=== PATIENT | female | born 2000 | race Hispanic/Latino ===

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

== ENCOUNTER 2021-01-18 11:41 | Emergency (ER) | payer SELFPAY ==
--- NOTE | 2021-01-18 14:01 | EDPHYS ---
Physician Documentation [facility] Name: Julissa Hernandez Age: 20 yrs Sex: Female : 2000 Arrival Date: 01/18/2021 Time: 11:47 Bed 12 Private MD: ED Physician Isacc Castellon HPI: 01/18 12:59 This 20 yrs old Female presents to ER via Ambulatory with complaints of rn Shoulder Injury. 12:59 The patient or guardian complains of an injury, pain, that is acute. left clavicle. rn Onset: The symptoms/episode began/occurred 2 day(s) ago. Modifying factors: the symptoms are alleviated by nothing. The symptoms are aggravated by movement, rotation of arm. Associated signs and symptoms: Pertinent negatives: diaphoresis, dyspnea, shortness of breath, tingling. Severity of symptoms: At their worst the symptoms were moderate, in the emergency department the symptoms are unchanged. The patient has not experienced similar symptoms in the past. The patient has not recently seen a physician. Patient reports fell out of bathtub yesterday and hit left clavicular area on toilet. Reports pain with range of motion of arm but isolates pain mainly to left clavicle as well as the left anterior lateral ribs. Denies shortness of breath.. Historical: - Allergies: 11:59 No Known Allergies; tw5 - Home Meds: 11:59 None [Active]; tw5 - PMHx: 11:59 None; tw5 - PSHx: 11:59 None; tw5 - Immunization history:: Client reports having NOT received the Covid vaccine. - Social history:: Smoking status: Patient denies any tobacco usage or history of. - Family history:: not pertinent. - Hospitalizations: : No recent hospitalization is reported. ROS: 12:59 Constitutional: Negative for fever, chills, and weight loss, Eyes: Negative for injury, rn pain, redness, and discharge, Neck: Negative for injury, pain, and swelling, Cardiovascular: Negative for palpitations, and edema, positive for pain to left clavicle Respiratory: Negative for shortness of breath, cough, wheezing, and pleuritic chest pain, Abdomen/GI: Negative for abdominal pain, nausea, vomiting, diarrhea, and constipation, Back: Negative for injury and pain, : Negative for injury, bleeding, discharge, and swelling, MS/Extremity: Negative for injury and deformity, Skin: Negative for injury, rash, and discoloration, Neuro: Negative for headache, weakness, numbness, tingling, and seizure. Exam: 12:59 Constitutional: This is a well developed, well nourished patient who is awake, alert, rn and in no acute distress. Head/Face: Normocephalic, atraumatic. Eyes: Periorbital areas with no swelling, redness, or edema. Chest/axilla: Mild tenderness left clavicle and anterior ribs, no crepitus, no ecchymosis Cardiovascular: Regular rate and rhythm. No pulse deficits. Respiratory: No increased work of breathing, no retractions or nasal flaring. Abdomen/GI: Soft, non-tender Back: No spinal tenderness. No costovertebral tenderness. Full range of motion. Skin: Warm, dry with normal turgor. Normal color with no rashes, no lesions, and no evidence of cellulitis. MS/ Extremity: Pulses equal, no cyanosis. Neurovascular intact. Full, normal range of motion. Equal circumference. Neuro: Awake and alert, GCS 15 Vital Signs: 11:56 BP 145 / 71; Pulse 106; Resp 18; Temp 97.5(T); Pulse Ox 100% ; Weight 72.57 kg; Height tw5 5 ft. 5 in. (165.10 cm); Pain 7/10; 12:30 BP 142 / 74; Pulse 98; Resp 18; Temp 97.8; Pulse Ox 99% ; sl2 11:56 Body Mass Index 26.63 (72.57 kg, 165.10 cm) tw5 MDM: 11:57 Patient medically screened. rn 14:02 Differential diagnosis: Clavicular fracture, rib fracture, shoulder injury, shoulder rn sprain, contusion. Data reviewed: vital signs, nurses notes. ED course: Patient eloped after being seen by provider. Reason was not given for leaving, but x-ray took a very long time to even come to room, I imagine it is delay in radiology the cause patient to leave.. 14:04 ED course: At time of elopement, I still did not have any radiological images.. rn Administered Medications: No medications were administered Disposition Summary: 01/18/21 14:00 Eloped Disposition: after being seen by provider gilson Reason: unknown jlHolger Problem: new rn Symptoms: have improved rn Condition: Stable rn Diagnosis - Contusion of thorax rn - Pain in left shoulder rn Followup: rn - With: Private Physician - When: As needed - Reason: Recheck today's complaints, Re-evaluation by your physician Signatures: Dispatcher [employer] EDMS Isacc Castellon MD MD rn Leal, Jahala, RN RN Jacqueline Garcia tw5 Corrections: (The following items were deleted from the chart) 14:00 12:20 Ribs Left+RAD.RAD.BRZ ordered. EDMS EDMS 14:00 12:20 Chest Single View+RAD.RAD.BRZ ordered. EDMS EDMS
--- NOTE | 2021-01-18 14:01 | ER ---
Nurse's Notes [facility] Name: Julissa Hernandez Age: 20 yrs Sex: Female : 2000 Arrival Date: 01/18/2021 Time: 11:47 Bed 12 Private MD: Diagnosis: Contusion of thorax;Pain in left shoulder Presentation: 01/18 11:56 Chief complaint: Patient states: "I fell in the shower and I landed on my shoulder i tw5 know have a pain from my shoulder down to my waist.' Patient states she fell two days ago. Coronavirus screen: Vaccine status: Patient reports being unvaccinated. Ebola Screen: Patient negative for fever greater than or equal to 101.5 degrees Fahrenheit, and additional compatible Ebola Virus Disease symptoms Patient denies exposure to infectious person. Patient denies travel to an Ebola-affected area in the 21 days before illness onset. Initial Sepsis Screen: Does the patient meet any 2 criteria? HR > 90 bpm. No. Patient's initial sepsis screen is negative. Does the patient have a suspected source of infection? No. Patient's initial sepsis screen is negative. Risk Assessment: Do you want to hurt yourself or someone else? Patient reports no desire to harm self or others. Onset of symptoms was January 16, 2021. 11:56 Method Of Arrival: Ambulatory tw5 11:56 Acuity: YOU 4 tw5 Triage Assessment: 11:59 General: Appears uncomfortable, Behavior is calm, cooperative. Pain: Pain currently is tw5 7 out of 10 on a pain scale. Musculoskeletal: Reports pain in left arm. Historical: - Allergies: 11:59 No Known Allergies; tw5 - Home Meds: 11:59 None [Active]; tw5 - PMHx: 11:59 None; tw5 - PSHx: 11:59 None; tw5 - Immunization history:: Client reports having NOT received the Covid vaccine. - Social history:: Smoking status: Patient denies any tobacco usage or history of. - Family history:: not pertinent. - Hospitalizations: : No recent hospitalization is reported. Screenin:05 Abuse screen: Denies threats or abuse. Nutritional screening: No deficits noted. sl2 Tuberculosis screening: No symptoms or risk factors identified. Fall Risk None identified. Assessment: 12:04 Reassessment: Patient AAO X 3, presents to ED with c/o left shoulder pain and left sl2 lateral torso pain - states fell in the shower 2 days ago hitting her shoulder, denies head injury, denies loss of consciousness at time of fall -. 12:05 General: Appears in no apparent distress. comfortable, well groomed, well developed, sl2 Behavior is calm, cooperative. 12:05 Pain: Complains of pain in Left shoulder and left arm Pain currently is 5 out of 10 on sl2 a pain scale. Quality of pain is described as aching, Is continuous, Aggravated by increased activity, Noted to be quiet/stoic. Neuro: No deficits noted. Cardiovascular: No deficits noted. Respiratory: No deficits noted. GI: No deficits noted. : No deficits noted. EENT: No deficits noted. Derm: No deficits noted. Musculoskeletal: Reports Left shoulder pain. 12:29 Reassessment: Patient sitting up in chair, shows no signs of acute distress or sl2 discomfort. Significant other Lukas present at bedside. X-ray pending. 13:59 Reassessment: Radiology unable to locate pt, I called pt on phone and pt reports she jl7 left to go to [place] [facility]. Vital Signs: 11:56 BP 145 / 71; Pulse 106; Resp 18; Temp 97.5(T); Pulse Ox 100% ; Weight 72.57 kg; Height tw5 5 ft. 5 in. (165.10 cm); Pain 7/10; 12:30 BP 142 / 74; Pulse 98; Resp 18; Temp 97.8; Pulse Ox 99% ; sl2 11:56 Body Mass Index 26.63 (72.57 kg, 165.10 cm) tw5 ED Course: 11:47 Patient arrived in ED. am2 11:56 Jacqueline Almanza is Primary Nurse. tw5 11:57 Isacc Castellon MD is Attending Physician. rn 11:59 Triage completed. tw5 11:59 Arm band placed on right wrist. tw5 12:05 Patient has correct armband on for positive identification. Bed in low position. sl2 12:05 No provider procedures requiring assistance completed. Patient did not have IV access sl2 during this emergency room visit. 14:02 Primary Nurse role handed off by Jacqueline Almanza jl7 Administered Medications: No medications were administered Outcome: 13:59 Eloped from patient exam room, after seeing physician Time discovered patient gone: jl7 January 18, 2021 at 14:00 14:00 Patient left the ED. jl7 14:10 Patient left the ED. jl7 Signatures: Isacc Castellon MD MD rn Leal, Jahala, RN RN jl7 Ally Pak am2 Jacqueline Almanza tw5 Kimberly Guallpa RN RN sl2
[2021-01-18 16:46] VITALS: BP 142/74; TEMP 97.8; O2SAT 99
== END 2021-01-18 14:10 | disposition left against medical advice (07) ==
LOC: ER 11:41
DX: S20.20XA Contusion of thorax, unspecified, initial encounter (principal); W17.89XA Other fall from one level to another, initial encounter; Y93.E1 Activity, personal bathing and showering
CPT/HCPCS: 99281